=== PATIENT | male | born 1965 | race American Indian/Alaskan Native ===

== ENCOUNTER 2017-06-14 04:26 | Inpatient (IN) | payer SELFPAY ==
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
[2017-06-14 07:06] LABS: Basophils % (Auto) 0.5 % (0.0-1.8); Eosinophils % (Auto) 1.3 % (0.0-4.3); Hematocrit 40.6 % (35.5-45.6); Hemoglobin 13.6 gm/dl (11.8-15.2); Mean Corpuscular HGB Conc 34 % (32-34); Mean Corpuscular Hemoglobin 30 pg (28-32); Mean Corpuscular Volume 89 fl (84-94); Platelet Count 267 K/mm3 (140-440); Red Blood Count 4.59 M/mm3 (3.65-5.03); Red Cell Distribution Width 14.7 % (13.2-15.2); White Blood Count 9.7 K/mm3 (4.5-11.0)
[2017-06-14 07:20] LABS: INR 0.9 (0.87-1.13); Partial Thromboplastin Time 23.3 Sec. (24.2-36.6)
--- NOTE | 2017-06-14 07:27 | Cat Scan Report ---
FINAL REPORT EXAM: CT HEAD/BRAIN WO CON HISTORY: syncope, head injury TECHNIQUE: Routine axial imaging was obtained of the brain without IV contrast. FINDINGS: There is a right-sided pre frontal scalp laceration. There is also a mildly depressed acute fracture of the nasal bone with overlying soft tissue swelling. There is mucosal thickening and secretions in the left maxillary sinus. There is mild mucosal thickening in the left ethmoid air cells. There is no evidence of skull fracture. Intracranially there is no evidence of acute stroke or hemorrhage. The ventricular system is appropriate in size and is symmetric. The basal cisterns appear normal. IMPRESSION: No evidence of acute stroke or hemorrhage. Acute mildly depressed fracture of the nasal bone with overlying soft tissue swelling. Left ethmoidal and left maxillary sinusitis. Small right pre frontal scalp injury.
--- NOTE | 2017-06-14 07:31 | Cat Scan Report ---
FINAL REPORT EXAM: CT CERVICAL SPINE WO CON HISTORY: pain after fall TECHNIQUE: Routine axial imaging was obtained of the cervical spine without IV contrast with sagittal and coronal reconstructions. FINDINGS: There is mild narrowing of the C3-C4, C5-C6 and C6-C7 disc. The alignment is normal. The canal size is normal. Nerve root impingement is not seen. There is no evidence of fracture. The prevertebral soft tissues and C1-C2 articulation appear intact. IMPRESSION: Degenerative arthritic changes as described. No evidence of acute injury.
[2017-06-14 08:28] LABS: Alanine Aminotransferase 46 units/L (7-56); Albumin/Globulin Ratio 1.3 %; Alkaline Phosphatase 104 units/L (35-129); Anion Gap 16 mmol/L; BUN/Creatinine Ratio 16; Bilirubin,Total < 0.20 mg/dL (0.1-1.2); Blood Urea Nitrogen 13 mg/dL (9-20); Carbon Dioxide 26 mmol/L (22-30); Chloride 100.2 mmol/L (98-107); Creatine Kinase 78 units/L (55-170); Glucose 145 mg/dL (75-100); Potassium 4.6 mmol/L (3.6-5.0); Sodium 138 mmol/L (137-145); Total Protein 7.1 g/dL (6.3-8.2)
--- NOTE | 2017-06-14 09:00 | XRay Report ---
FINAL REPORT EXAM: XR SHOULDER 2+V LT HISTORY: pain after fall COMPARISONS: None. FINDINGS: 3 views left shoulder Left glenohumeral joint appears intact. Mild acromioclavicular osteoarthrosis. Punctate calcifications adjacent to the humeral head are most likely within the supraspinatus. Acromioclavicular and coracoclavicular intervals are within normal limits. No displaced fracture. Incomplete evaluation of the adjacent left lung is unremarkable. IMPRESSION: No acute findings. Mild left acromioclavicular osteoarthrosis. Suggested mild calcific tendinopathy of the supraspinatus.
--- NOTE | 2017-06-14 09:12 | XRay Report ---
Single chest: History: Shortness of breath. Findings: Normal cardiomediastinal silhouette. Trachea is midline. No consolidation, pneumothorax or pleural effusion. Impression: No acute cardiopulmonary findings.
[2017-06-14] MEDS ORDERED: MORPHINE IV ONE ×2 (09:16→12:58)
[2017-06-14] MEDS ORDERED: ZOFRAN IV ONE (09:16)
[2017-06-14 09:55] LABS: Urine Drugs of Abuse Note Disclamer
[2017-06-14] MEDS ORDERED: NACL 0.9% 500 ML IR ONE (10:07)
[2017-06-14 10:13] LABS: Bilirubin,Urine NEG (Negative); Blood,Urine NEG (Negative); Granular Casts,Urine 1 /LPF; Ketones,Urine NEG (Negative); Leukocyte Esterase,Urine NEG (Negative); Mucus,Urine FEW /HPF; Nitrite,Urine NEG (Negative); Protein,Urine <15 mg/dL mg/dL (Negative); Urobilinogen,Urine < 2.0 mg/dL (<2.0)
[2017-06-14] MEDS ORDERED: XYLOCAINE 1% 20 mL ONE (10:14)
[2017-06-14] MEDS ORDERED: MARCAINE 0.5% 30 ML INFILTRATI ONE (10:14)
[2017-06-14] MEDS ORDERED: ANTIBIOTIC OINT TP ONE (11:13)
[2017-06-14] MEDS ORDERED: ASPIRIN PO ONE (11:27)
[2017-06-14] MEDS ORDERED: TRIPLE ANTIBIOTIC TP ONE ×2 (12:24→12:26)
[2017-06-14] MEDS ORDERED: MILK OF MAGNESIA PO PRN (14:41)
[2017-06-14] MEDS ORDERED: TYLENOL PO PRN (14:41)
[2017-06-14] MEDS ORDERED: ZOFRAN IV PRN (14:41)
[2017-06-14] MEDS ORDERED: DULCOLAX PR PRN (14:41)
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
[2017-06-14] MEDS ORDERED: NACL 0.45% 1000 ML 1,000 ML IV SCH (15:00)
[2017-06-14] MEDS ORDERED: D50W (25GM) Syringe IV PRN (15:01)
[2017-06-14] MEDS: NOVOLOG SUB-Q SCH ×2 (16:10→22:53)
[2017-06-14] MEDS ORDERED: ULTRAM PO PRN (16:52)
[2017-06-14] MEDS ORDERED: NON-FORMULARY (Gabapentin [Neurontin] 600 MG) PO SCH (17:00)
[2017-06-14] MEDS: PRAVACHOL PO SCH (21:12)
[2017-06-14] MEDS: NEURONTIN PO SCH (21:12)
[2017-06-14] MEDS: PERCOCET 5/325 PO PRN (21:58)
[2017-06-14] MEDS ORDERED: NON-FORMULARY (Simvastatin 10 MG) PO SCH (22:00)
[2017-06-15] MEDS: PERCOCET 5/325 PO PRN ×3 (04:02→18:13)
[2017-06-15] MEDS: NEURONTIN PO SCH ×3 (05:42→21:21)
[2017-06-15] MEDS: NOVOLOG SUB-Q SCH ×4 (08:12→22:50)
[2017-06-15] MEDS ORDERED: NON-FORMULARY (Multivitamin [Multiple Vitamins] 1 EACH) PO SCH (10:00)
[2017-06-15] MEDS ORDERED: LEXISCAN IV ONE ×2 (11:10)
[2017-06-15] MEDS: LOVENOX SUB-Q SCH (12:30)
[2017-06-15] MEDS: BABY ASPIRIN PO SCH (12:31)
[2017-06-15] MEDS: THERAGRAN-M Tab PO SCH (14:25)
[2017-06-15] MEDS: ZOLOFT PO SCH (14:26)
--- NOTE | 2017-06-15 14:56 | Progress Note ---
Assessment and Plan Assessment and plan: Syncope and fall. Likely vasovagal. ECHO unremarkable. Stress test negative. Fall due to syncope Laceration of forehead after fall. Sutured. Fracture nasal bone after fall. To follow with ENT as out patient. Diabetes mellitus type 2. Check fingerstick Qac and hs Hypertension. BP stable Bipolar disorder. He was at Psych facility when he fell. DVT prophylaxis with Lovenox. History Interval history: Syncope Fall injuring face Hospitalist Physical - Constitutional Vitals: Temp Pulse Resp BP Pulse Ox 98.4 F 99 H 18 149/86 99 06/15/17 09:14 06/15/17 11:33 06/15/17 09:14 06/15/17 11:33 06/15/17 09:14 General appearance: Present: no acute distress, well-nourished - EENT Eyes: Present: PERRL ENT: hearing intact, other (swollen nose, sutured laceration,forehead) - Neck Neck: Present: supple - Respiratory Respiratory effort: normal Respiratory: bilateral: CTA - Cardiovascular Rhythm: regular Heart Sounds: Present: S1 & S2 - Extremities Extremities: No edema - Abdominal General gastrointestinal: soft, non-tender, non-distended, normal bowel sounds - Integumentary Integumentary: Present: clear, warm, dry - Neurologic Neurologic: moves all extremities, other (AAO x 3) Results - Labs CBC & Chem 7: 06/14/17 06:55 06/14/17 06:55 Labs: Laboratory Last Values WBC 9.7 K/mm3 (4.5-11.0) 06/14/17 06:55 RBC 4.59 M/mm3 (3.65-5.03) 06/14/17 06:55 Hgb 13.6 gm/dl (11.8-15.2) 06/14/17 06:55 Hct 40.6 % (35.5-45.6) 06/14/17 06:55 MCV 89 fl (84-94) 06/14/17 06:55 MCH 30 pg (28-32) 06/14/17 06:55 MCHC 34 % (32-34) 06/14/17 06:55 RDW 14.7 % (13.2-15.2) 06/14/17 06:55 Plt Count 267 K/mm3 (140-440) 06/14/17 06:55 Lymph % (Auto) 13.0 % (13.4-35.0) L 06/14/17 06:55 [place] % (Auto) 5.0 % (0.0-7.3) 06/14/17 06:55 Eos % (Auto) 1.3 % (0.0-4.3) 06/14/17 06:55 Baso % (Auto) 0.5 % (0.0-1.8) 06/14/17 06:55 Lymph # 1.3 K/mm3 (1.2-5.4) 06/14/17 06:55 [place] # 0.5 K/mm3 (0.0-0.8) 06/14/17 06:55 Eos # 0.1 K/mm3 (0.0-0.4) 06/14/17 06:55 Baso # 0.1 K/mm3 (0.0-0.1) 06/14/17 06:55 Seg Neutrophils % 80.2 % (40.0-70.0) H 06/14/17 06:55 Seg Neutrophils # 7.8 K/mm3 (1.8-7.7) H 06/14/17 06:55 PT 12.6 Sec. (12.2-14.9) 06/14/17 06:55 INR 0.90 (0.87-1.13) 06/14/17 06:55 APTT 23.3 Sec. (24.2-36.6) L 06/14/17 06:55 D-Dimer 174.25 ng/mlDDU (0-234) 06/14/17 06:55 VBG pH 7.364 (7.320-7.420) 06/14/17 06:55 Sodium 138 mmol/L (137-145) 06/14/17 06:55 Potassium 4.6 mmol/L (3.6-5.0) 06/14/17 06:55 Chloride 100.2 mmol/L (98-107) 06/14/17 06:55 Carbon Dioxide 26 mmol/L (22-30) 06/14/17 06:55 Anion Gap 16 mmol/L 06/14/17 06:55 BUN 13 mg/dL (9-20) 06/14/17 06:55 Creatinine 0.8 mg/dL (0.8-1.5) 06/14/17 06:55 Estimated GFR > 60 ml/min 06/14/17 06:55 BUN/Creatinine Ratio 16 % 06/14/17 06:55 Glucose 145 mg/dL (75-100) H 06/14/17 06:55 POC Glucose 111 (70-105) H 06/15/17 08:35 Calcium 9.0 mg/dL (8.4-10.2) 06/14/17 06:55 Total Bilirubin < 0.20 mg/dL (0.1-1.2) 06/14/17 06:55 AST 19 units/L (5-40) 06/14/17 06:55 ALT 46 units/L (7-56) 06/14/17 06:55 Alkaline Phosphatase 104 units/L (35-129) 06/14/17 06:55 Total Creatine Kinase 78 units/L (55-170) 06/14/17 06:55 CK-MB (CK-2) 2.0 ng/mL (0.0-4.0) 06/14/17 06:55 CK-MB (CK-2) Rel Index 2.5 (0-4) 06/14/17 06:55 Troponin T < 0.010 ng/mL (0.00-0.029) 06/14/17 17:23 Total Protein 7.1 g/dL (6.3-8.2) 06/14/17 06:55 Albumin 4.0 g/dL (3.9-5) 06/14/17 06:55 Albumin/Globulin Ratio 1.3 % 06/14/17 06:55 Urine Color Yellow (Yellow) 06/14/17 09:49 Urine Turbidity Clear (Clear) 06/14/17 09:49 Urine pH 7.0 (5.0-7.0) 06/14/17 09:49 Ur Specific [place] 1.019 (1.003-1.030) 06/14/17 09:49 Urine Protein <15 mg/dl mg/dL (Negative) 06/14/17 09:49 Urine Glucose (UA) 50 mg/dL (Negative) 06/14/17 09:49 Urine Ketones Neg mg/dL (Negative) 06/14/17 09:49 Urine Blood Neg (Negative) 06/14/17 09:49 Urine Nitrite Neg (Negative) 06/14/17 09:49 Urine Bilirubin Neg (Negative) 06/14/17 09:49 Urine Urobilinogen < 2.0 mg/dL (<2.0) 06/14/17 09:49 Ur Leukocyte Esterase Neg (Negative) 06/14/17 09:49 Urine WBC (Auto) 1.0 /HPF (0.0-6.0) 06/14/17 09:49 Urine RBC (Auto) 2.0 /HPF (0.0-6.0) 06/14/17 09:49 U Epithel Cells (Auto) < 1.0 /HPF (0-13.0) 06/14/17 09:49 Granular Casts 1 /LPF 06/14/17 09:49 Urine Mucus Few /HPF 06/14/17 09:49 Urine Opiates Screen Presumptive negative 06/14/17 09:49 Urine Methadone Screen Presumptive negative 06/14/17 09:49 Ur Barbiturates Screen Presumptive negative 06/14/17 09:49 Ur Phencyclidine Scrn Presumptive negative 06/14/17 09:49 Ur Amphetamines Screen Presumptive negative 06/14/17 09:49 U Benzodiazepines Scrn Presumptive negative 06/14/17 09:49 Urine Cocaine Screen Presumptive negative 06/14/17 09:49 U Marijuana (THC) Screen Presumptive negative 06/14/17 09:49 Drugs of Abuse Note Disclamer 06/14/17 09:49 Plasma/Serum Alcohol < 0.01 gm% (0-0.07) 06/14/17 06:55
[2017-06-15] MEDS: PRAVACHOL PO SCH (21:21)
--- NOTE | 2017-06-15 22:03 | Treadmill Report ---
NUCLEAR STRESS TEST REPORT The patient is brought to the Cardiology lab and a nuclear stress test is performed. The patient tolerated the procedure well. Post-stress images reveal homogeneous distribution of the isotope with no significant reversibility to indicate ischemia. Accompanying gated study shows good systolic function with a calculated ejection fraction of 69%. No wall motion abnormalities are noted. IMPRESSION: 1. Nuclear stress test is negative for reversible defects to indicate ischemia. 2. Good systolic function with a calculated ejection fraction of 69% with no wall motion abnormalities. 3. Suggest clinical correlation. JOB# [id number] KBM/NTS
[2017-06-16] MEDS: PERCOCET 5/325 PO PRN ×3 (00:12→13:03)
[2017-06-16] MEDS: NEURONTIN PO SCH ×2 (06:00→13:03)
[2017-06-16] MEDS: NOVOLOG SUB-Q SCH (08:00)
[2017-06-16] MEDS: LOVENOX SUB-Q SCH ×2 (09:38→10:56)
[2017-06-16] MEDS: THERAGRAN-M Tab PO SCH (09:38)
[2017-06-16] MEDS: ZOLOFT PO SCH (09:38)
[2017-06-16] MEDS: BABY ASPIRIN PO SCH (09:38)
[2017-06-16 12:30] VITALS: BP 139/88
--- NOTE | 2017-06-16 13:52 | Discharge Summary ---
Providers - Providers Date of Admission: 06/14/17 14:42 Date of discharge: 06/16/17 Attending physician: MEG EDWARDS 06/14/17 15:00 Consult to Physician [CONS] Routine Consulting Provider: HIMA HINKLE Reason For Exam: nasal fracture Place consult to:: Dr. Hinkle Notified:: Collette RN Phone number called:: Was contact made?: Yes If yes, spoke with:: Mary service Time called:: 17:47 06/15/17 16:26 Consult to Physician [CONS] Routine Consulting Provider: RACHELLE BOND Reason For Exam: mental evaluation and medication recommendation Place consult to:: Psych Notified:: YES Was contact made?: Yes If yes, spoke with:: JASPER Time called:: 17:12 Comment:: ADDED TO LIST 06/16/17 08:39 Physical Therapy Evaluation and Treat [CONS] Routine Comment: Reason For Exam: Gen weakness, dizziness Primary care physician: SAND ANALYST Hospitalization Condition: Fair Disposition: DC/TX-65 PSY HOSP/PSY UNIT - Discharge Diagnoses (1) Vasovagal syncope Status: Acute (2) Facial laceration Status: Acute (3) Nasal fracture Status: Acute (4) Bipolar disorder Status: Acute Qualifiers: Most recent bipolar episode type: hypomanic (5) Diabetes mellitus type 2, uncontrolled Status: Acute Qualifiers: Diabetes mellitus complication status: with hyperglycemia (6) HTN (hypertension), benign Status: Chronic Core Measure Documentation - Palliative Care Palliative Care/ Comfort Measures: Not Applicable - Core Measures Any of the following diagnoses?: none Exam - Constitutional Vitals: Temp Pulse Resp BP Pulse Ox 98.4 F 82 20 139/88 99 06/16/17 12:28 06/16/17 12:28 06/16/17 12:28 06/16/17 12:28 06/16/17 12:28 Plan Activity: no restrictions Diet: low fat, low cholesterol, low salt, diabetic Additional Instructions: 1.Follow up with PCP in 1 week. 2.Follow up with Mental health in few days. 3.Follow up with Dr. Zana Romeo or any other ENT Surgeon for evaluation of nasal bone fracture. 4.[place] on face to be removed 06/17/17. Follow up with: PRIMARY CARE, [Primary Care Provider] - 3-5 Days Prescriptions: Gabapentin [Neurontin] 300 mg PO Q8HR #90 capsule HYDROcodone/ACETAMINOPHEN [[place] 5-325 Tablet] 1 each PO Q8H #10 tablet Ibuprofen 400 mg PO TID #10 tablet metFORMIN [Glucophage] 500 mg PO QDAY #30 tablet
== END 2017-06-16 15:32 | disposition home or self-care (01) | DRG 581 ==
LOC: ED 04:26 → 4A 14:42
PROVIDERS: ADMIT Internal Medicine; ATTEND Internal Medicine
PROC: 0WQ0XZZ Repair Head, External Approach (ICD-10-PCS; principal; 2017-06-14)
DX: S01.81XA Laceration without foreign body of other part of head, initial encounter (principal); R55 Syncope and collapse; E11.9 Type 2 diabetes mellitus without complications; I10 Essential (primary) hypertension; F31.9 Bipolar disorder, unspecified; W18.39XA Other fall on same level, initial encounter; S02.2XXA Fracture of nasal bones, initial encounter for closed fracture; F12.90 Cannabis use, unspecified, uncomplicated; Z72.89 Other problems related to lifestyle; Y93.89 Activity, other specified; Y92.89 Other specified places as the place of occurrence of the external cause; Y99.8 Other external cause status; Z80.9 Family history of malignant neoplasm, unspecified
CPT/HCPCS: 36415; 70450; 71010; 72125; 78452; 80053; 80307; 80320; 81001; 82550; 82553; 82805; 82962; 84484; 85025; 85379; 85610; 85730; 93005; 93010; 93017; 93306; 96374; 96375; 96376; 99285; A6250; A9270-GY; A9502; G0480; J1650; J2270; J2405; J2785

== ENCOUNTER 2017-06-16 19:53 | Emergency (ER) | payer OTHER ==
[2017-06-16 21:09] LABS: Urine Drugs of Abuse Note Disclamer
[2017-06-16 21:16] LABS: Bilirubin,Urine NEG (Negative); Blood,Urine NEG (Negative); Ketones,Urine NEG (Negative); Leukocyte Esterase,Urine NEG (Negative); Mucus,Urine FEW /HPF; Nitrite,Urine NEG (Negative); Protein,Urine <15 mg/dL mg/dL (Negative); Urobilinogen,Urine < 2.0 mg/dL (<2.0); WBC,Urine < 1.0 /HPF (0.0-6.0)
[2017-06-16 21:46] LABS: Basophils % (Auto) 0.6 % (0.0-1.8); Hematocrit 40.8 % (35.5-45.6); Hemoglobin 13.9 gm/dl (11.8-15.2); Mean Corpuscular HGB Conc 34 % (32-34); Mean Corpuscular Hemoglobin 30 pg (28-32); Mean Corpuscular Volume 89 fl (84-94); Platelet Count 284 K/mm3 (140-440); Red Cell Distribution Width 14.5 % (13.2-15.2); White Blood Count 8.9 K/mm3 (4.5-11.0)
[2017-06-16 22:05] LABS: Anion Gap 18 mmol/L; BUN/Creatinine Ratio 13; Blood Urea Nitrogen 13 mg/dL (9-20); Calcium 9.3 mg/dL (8.4-10.2); Carbon Dioxide 26 mmol/L (22-30); Chloride 98.8 mmol/L (98-107); Glucose 198 mg/dL (75-100); Potassium 4.2 mmol/L (3.6-5.0); Sodium 139 mmol/L (137-145)
[2017-06-17] MEDS ORDERED: ATIVAN IM PRN (01:44)
[2017-06-17] MEDS ORDERED: HALDOL IM PRN (01:44)
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
[2017-06-17] MEDS: NEURONTIN PO SCH ×2 (02:29→10:04)
[2017-06-17] MEDS: FLONASE NS SCH ×2 (02:30→10:05)
[2017-06-17] MEDS ORDERED: GLUCOPHAGE PO SCH (08:00)
[2017-06-17 08:19] VITALS: BP 145/94
[2017-06-17] MEDS: MOTRIN PO SCH ×2 (09:21→14:12)
[2017-06-17] MEDS ORDERED: THERAGRAN Tab PO SCH (10:00)
[2017-06-17] MEDS ORDERED: NON-FORMULARY (Multivitamin [Multiple Vitamins] 1 EACH) PO SCH (10:00)
--- NOTE | 2017-06-17 15:41 | Consultation ---
History of Present Illness - Reason for Consult Reason for consult: recent fall, SI Medications and Allergies Allergies Allergy/AdvReac Type Severity Reaction Status Date / Time No Known Allergies Allergy Verified 06/14/17 10:11 Home Medications Medication Instructions Recorded Confirmed Last Taken Type Aspirin [Aspirin BABY CHEW TAB] 81 mg PO QDAY 06/14/17 06/17/17 Unknown History Multivitamin [Multiple Vitamins] 1 each PO DAILY 06/14/17 06/17/17 Unknown History Sertraline [Zoloft] 50 mg PO QDAY 06/14/17 06/17/17 Unknown History Simvastatin [Zocor TAB] 10 mg PO QHS 06/14/17 06/17/17 Unknown History Gabapentin [Neurontin] 300 mg PO Q8HR #90 capsule 06/16/17 06/17/17 Unknown Rx HYDROcodone/ACETAMINOPHEN [[place] 1 each PO Q8H #10 tablet 06/16/17 06/17/17 Unknown Rx 5-325 Tablet] Ibuprofen 400 mg PO TID #10 tablet 06/16/17 06/17/17 Unknown Rx metFORMIN [Glucophage] 500 mg PO QDAY #30 tablet 06/16/17 06/17/17 Unknown Rx Active Meds: Active Medications Fluticasone Propionate (Flonase) 100 mcg NS BID [facility] Last Admin: 06/17/17 10:05 Dose: Not Given Gabapentin (Neurontin) 300 mg PO Q8H [facility] Last Admin: 06/17/17 10:04 Dose: 300 mg Haloperidol Lactate (Haldol) 5 mg IM Q6HR PRN PRN Reason: Agitation Last Admin: 06/17/17 03:10 Dose: 5 mg Ibuprofen (Motrin) 400 mg PO TID [facility] Last Admin: 06/17/17 14:12 Dose: 400 mg Lorazepam (Ativan) 2 mg IM Q4HR PRN PRN Reason: Agitation Metformin HCl (Glucophage) 500 mg PO QDDIAB [facility] Last Admin: 06/17/17 09:21 Dose: 500 mg Multivitamins (Theragran Tab) 1 each PO DAILY [facility] Last Admin: 06/17/17 10:03 Dose: 1 each Mental Status Exam - Vital signs Last Vital Signs Temp 98.7 F 06/17/17 08:18 Pulse 86 06/17/17 08:18 Resp 14 06/17/17 08:18 BP 145/94 06/17/17 08:18 Pulse Ox 98 06/17/17 08:18 Results Result Diagrams: 06/16/17 21:22 06/16/17 21:22 Abnormal lab results 06/16/17 06/16/17 06/17/17 Range/Units 21:22 21:22 01:57 Eos % (Auto) 5.0 H (0.0-4.3) % Glucose 198 H (75-100) mg/dL Salicylates < 0.3 L (2.8-20.0) mg/dL All other labs normal. Assessment and Plan Assessment and plan: CHIEF COMPLAINT IN PATIENTS WORDS: HISTORY OF PRESENT ILLNESS: This is a 51-year-old male with a reported PPH of cocaine abuse, PTSD who presents secondary to ongoing suicidal ideation. Patient notes that he present to the ER secondary to a fall he sustained while at her [facility]. Patient knows that he was hospitalized for several days at [facility] and when he fell and needed sutures, he was brought to [facility] for further treatment. Patient notes that he has recently moved from [place] to [place] to obtain substance abuse treatment. On examination, patient was fairly sedate and appeared to be in some pain. Patient noted that he continues to have suicidal thoughts. Furthermore he notes symptoms of depression most notably insomnia, anhedonia, anergia and chronic low sad moods. CURRENT MEDICATIONS: Zoloft Zyprexa ALLERGIES: NKDA PAST PSYCHIATRIC HISTORY: Inpatient: Hospitalization at [facility] Outpatient: No outpatient care in [place] Prior Suicide Attempts: Previous suicide attempts noted Prior Self-Injurious Behaviors: No self injury noted currently PAST PSYCHIATRIC MEDICATION TRIALS: Unknown to the patient MEDICAL HISTORY: Laceration to the forehead Appears to have some nasal bone fracture, possible MENTAL STATUS EXAM: General Appearance: Dressed in hospital gown, in acute distress Sensorium/Consciousness: alert and responding to external stimuli Eye Contact: limited Attitude / Behavior: cooperative, but guarded Psychomotor & Musculoskeletal Activity: WNL Mood: fine Affect: constricted Speech / Language: normal Thought Processes: organized, logical, linear, goal directed Thought Content: SI Perception: no AVH Orientation: person, place, time, situation Judgment What would you do if you smelled smoke in a crowded movie theater?: fair Insight: fair Intelligence Vocabulary, general fund of knowledge, educational level: Average Capacity of ADLs: Independent STRENGTHS: PSYCHOSOCIAL AND ENVIRONMENTAL STRESSORS: ASSESSMENT: MDD, severe recurrent Cocaine abuse Cannabis abuse PLAN OF CARE: Refer for inpatient psychiatric care Reconcile home medications. Start on zoloft and zyprexa at the current time.
[2017-06-17] MEDS ORDERED: ZOLOFT PO SCH (22:00)
== END 2017-06-17 17:02 ==
LOC: EEVIPCON 19:53 → ED 19:53
DX: R45.851 Suicidal ideations (principal); R51 Headache; G89.29 Other chronic pain; E11.9 Type 2 diabetes mellitus without complications; I10 Essential (primary) hypertension; Z79.82 Long term (current) use of aspirin
CPT/HCPCS: 36415; 80048; 80307; 81001; 82550; 82962; 85025; 96372; 99285; G0480; J1630; 80320

== ENCOUNTER 2017-12-19 13:44 | Emergency (ER) | payer SELFPAY ==
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
[2017-12-19 15:14] LABS: Basophils % (Auto) 0.2 % (0.0-1.8); Eosinophils % (Auto) 0.2 % (0.0-4.3); Hematocrit 43.4 % (35.5-45.6); Hemoglobin 14.4 gm/dl (11.8-15.2); Lymphocytes # (Auto) 1.1 K/mm3 (1.2-5.4); Lymphocytes % (Auto) 9.4 % (13.4-35.0); Mean Corpuscular HGB Conc 33 % (32-34); Mean Corpuscular Hemoglobin 30 pg (28-32); Mean Corpuscular Volume 89 fl (84-94); Monocytes # (Auto) 0.7 K/mm3 (0.0-0.8); Monocytes % (Auto) 5.9 % (0.0-7.3); Platelet Count 240 K/mm3 (140-440); Red Blood Count 4.87 M/mm3 (3.65-5.03); Red Cell Distribution Width 14.2 % (13.2-15.2)
[2017-12-19 15:27] LABS: BUN/Creatinine Ratio 10; Blood Urea Nitrogen 9 mg/dL (9-20); Calcium 9.4 mg/dL (8.4-10.2); Hemolysis Index 13
[2017-12-19 15:59] LABS: Bacteria,Urine 1+ /HPF (Negative); Bilirubin,Urine NEG (Negative); Blood,Urine NEG (Negative); Color,Urine Yellow (Yellow); Granular Casts,Urine 3 /LPF; Hyaline Casts,Urine 1 /LPF; Mucus,Urine FEW /HPF
[2017-12-19 17:35] VITALS: BP 138/97
== END 2017-12-19 17:34 ==
LOC: ED 13:44
DX: K04.7 Periapical abscess without sinus (principal); R11.10 Vomiting, unspecified; I10 Essential (primary) hypertension; E11.9 Type 2 diabetes mellitus without complications; F17.200 Nicotine dependence, unspecified, uncomplicated; F14.10 Cocaine abuse, uncomplicated; F12.10 Cannabis abuse, uncomplicated
CPT/HCPCS: 36415; 80048; 81001; 85025